=== PATIENT | male | born 1990 | race Caucasian/White ===

== ENCOUNTER 2018-11-28 05:07 | Emergency (ER) | payer SELFPAY ==
[~2018-11-28] VITALS: Ht 175.3 cm; Wt 89.4 kg
[2018-11-28 05:15] VITALS: Ht 175.3 cm; Wt 89.4 kg
[2018-11-28 06:32] VITALS: BP 120/78
== END 2018-11-28 06:32 | disposition home or self-care (01) ==
LOC: ED 05:07
DX: S13.4XXA Sprain of ligaments of cervical spine, initial encounter (principal); M25.511 Pain in right shoulder; J45.909 Unspecified asthma, uncomplicated; X58.XXXA Exposure to other specified factors, initial encounter; Y93.89 Activity, other specified; Y92.89 Other specified places as the place of occurrence of the external cause; Y99.8 Other external cause status